=== PATIENT | female | born 1990 | race Caucasian/White ===

== ENCOUNTER 2024-07-15 09:31 | Outpatient (AMB) | payer BC, SELFPAY ==
--- NOTE | 2024-07-15 09:53 | MHC.PC.OV ---
Vital Signs 07/15/24 10:03 Height 5 ft 2.99 in Weight 138 lb BMI 24.5 BP 92/68 Blood Pressure Location Lt brachial Position Sitting Respiration 12 Pulse 70 Pulse Source Pulse Oximeter Pulse Oximetry (%) 100 Oxygen Delivery Method Room Air Intake Visit Reasons: hip pain Marketing Compliance Manager Required: No Allergies No Known Allergies Allergy (Verified 07/15/24 09:59) Medication List - Last Reconciled 07/15/24 by Katiana Mendoza PA-C No Known Home Meds Tobacco use date assessed: 07/15/24 Dental Screening Dental Screen Date: 07/15/24 Did you have a dental visit in the last 12 months?: Yes Did you have a dental problem in the last 6 months where you did not have access to dental care?: No Was dental information given to patient?: Patient has dentist HPI hip pain HPI Details Patient is a 33-year-old female who presents today to reestablish care and with concerns regarding left hip pain. CV: History of a septal defect and had an echo a couple years ago at [facility] which she states was overall normal/reassuring. Unfortunately, we do not have the records yet from [facility] but we will be requesting these today. Musculoskeletal: She states that her left hip pain started around Nikki time. She notices it mostly on the lateral aspect of her left hip and she states that there is a lot of point tenderness with this. It was worse if she sits and then goes to stand up. She states sitting in the car or sitting at a desk can cause it to become very painful when she goes to initially stand. Lying on that side at night is also very uncomfortable. She does not stretch but does exercise regularly. There was no specific trauma or injury to the hip. No radiation down the leg or in the back. No radiation into the groin. She states sometimes putting weight on the hip also elicits discomfort. She walks a mi or 2 a day and does not have any discomfort when she starts moving. She says it is always the 1st initial steps that are painful. General: She has been feeling a little tired recently but attributes this to life but is interested in her labs as it has been quite sometime since she has had any blood work. BODY MECHANIC: [facility] hx: lung ca maternal grandmother [facility] Social History Housing: House Patient Tobacco Use Status: Never used Tobacco e-Cigarette/Vaping Use: Never Used Second Hand Smoke Exposure: No service: No Current occupational status: employed Current occupation: academic affairs assistant Current occupational exposures/hazards: No Cognitive needs: No Hearing needs: No Vision needs: No Questionnaire PHQ-9 Over the last 2 weeks, how often have you been bothered by any of the following problems? 1. Little interest or pleasure in doing things: not at all 2. Feeling down, depressed, or hopeless: not at all 3. Trouble falling or staying asleep, or sleeping too much: several days 4. Feeling tired or having little energy: not at all 5. Poor appetite or overeating: not at all 6. Feeling bad about yourself - or that you are a failure or have let yourself or your family down: not at all 7. Trouble concentrating on things, such as reading the newspaper or watching television: not at all 8. Moving or speaking so slowly that other people could have noticed. Or the opposite - being so fidgety or restless that you have been moving around a lot more than usual: not at all 9. Thoughts that you would be better off or of hurting yourself in some way: not at all Total score: 1 Depression Screening Interpretation: Negative Depression Screening Done: Yes 22063 - PHQ-9 Billing: Yes Source: Developed by Drs. Nolan Cardozo, Saida Ham, Smith Corona and colleagues, with an educational steve from [employer]. Thrive Questionnaire I am a: Patient What is your living situation today?: I have a steady place to live Within the past 12 months, did the food you bought not last and you didn't have the money to get more?: Never true Within the past 12 months, did you worry whether your food would run out before you got money to buy more?: Never true Do you have trouble paying for medicines?: No Do you have trouble getting transportation to medical appointments?: No Do you have trouble paying your heating and electricity bill?: No Do you have trouble taking care of your child, family member or friend?: No Do you have trouble with day-to-day activities such as bathing, preparing meals, shopping, managing finances, etc.?: No Are you currently unemployed and looking for a job?: No Are you interested in more education?: No Please select the resources that you would like help with: None Currently or been in a relationship where the following occur: No concerns reported THRIVE Score: 0 AUDIT C Alcohol Use Questionnaire (AUDIT-C) 1. How often do you have a drink containing alcohol?: 2-4 times a month 2. How many drinks containing alcohol do you have on a typical day when you are drinking?: 1 or 2 3. How often do you have six or more drinks on one occasion?: Never Total Score: 2 KARLOS-7 AMB Questionnaire KARLOS-7 Feeling nervous, anxious, or on edge: 0 = Not at all Not being able to stop or control worryin = Not at all Worrying too much about different things: 0 = Not at all Trouble relaxin = Not at all Being so restless that it is hard to sit still: 0 = Not at all Becoming easily annoyed or irritable: 0 = Not at all Feeling afraid as if something awful might happen: 0 = Not at all Total KARLOS-7 score (0-4 normal; 5-9 mild; 10-14 moderate; 15-21 severe): 0 Source: Developed by Drs. Nolan Cardozo, Saida Ham, Smith Corona and colleagues, with an educational steve from [employer]. KARLOS-7 Assessment Billing KARLOS-7 Assessment Tool: KARLOS-7 Assessment 41831 Physical exam (Primary Care) Vital Signs: Last Vital Signs Pulse 70 07/15/24 10:03 Resp 12 07/15/24 10:03 BP 92/68 07/15/24 10:03 Pulse Ox 100 07/15/24 10:03 Oxygen Delivery Method Room Air 07/15/24 10:03 BMI result Body Mass Index 24.5 Tobacco/Smoking Status: Tobacco use Status Tobacco use date assessed 07/15/24 07/15/24 10:02 Patient Tobacco Use Status Never used Tobacco 07/15/24 10:02 e-Cigarette/Vaping Use Never Used 07/15/24 10:02 PHQ-9: PHQ-9 Score PHQ-9: Total score 1 07/15/24 09:53 Depression Screening Interpretation: Negative Currently or been in a relationship where the following occur: No concerns reported Const Orientation/consciousness: patient oriented x3 HENMT Ears: hearing grossly normal bilaterally Neck Thyroid: Thyroid normal Lymphatic: no lymphadenopathy noted Resp Auscultation: clear to auscultation bilaterally Cardio Rate: regular rate Rhythm: regular rhythm Heart sounds: S1 normal heart sound present and S2 normal heart sound present GI Inspection: Yes normal to inspection Palpation (GI): Soft to palpation and Other GI palpation findings present (nontender, no cva tenderness) Auscultation: normoactive bowel sounds Rectal Exam - Female: deferred General: Yes no CVA tenderness Back/Spine/Pelvis Back: no CVA tenderness Cervical Spine: cervical ROM normal Thoracic/Lumbar Spine: thoraco-lumbar ROM normal and straight leg raise negative bilaterally Skin General skin exam: no rashes or lesions noted Neuro General: patient oriented x3, gait normal and no focal motor deficits Extrem Other: There is tenderness to palpation over the left greater trochanteric region. Full range of motion of the hip however internal rotation elicits discomfort. No discomfort with flexion or extension. No palpable deformity. Coding Level of Care Code Est Pt Level 4 (77622) Complex EM visit Add On G2211 Diagnoses Left hip pain M25.552 Fatigue R53.83 Additional Codes PHQ-9 - 43160 - PHQ-9 Billing: Yes ([id number]) KARLOS-7 Assessment Billing - KARLOS-7 Assessment Tool: KARLOS-7 Assessment 26603 ([id number]) Assessment & Plan Assessment & Plan (1) Left hip pain: Code(s): M25.552 - Pain in left hip Category: Medical Plan: X-ray ordered. Advised to try resting and hip bursitis exercises. Labs ordered. We will follow up pending test results (2) Fatigue: Code(s): R53.83 - Other fatigue Category: Medical Plan: Labs ordered. We will follow up pending test results. Advised patient to follow up for a physical exam. Orders: Orders Comprehensive Met. Panel Today M25.552 - Pain in left hip, R53.83 - Other fatigue, Z00.00 - Encounter for general adult medical examination without abnormal findings TSH reflex Free T4 Today M25.552 - Pain in left hip, R53.83 - Other fatigue, Z00.00 - Encounter for general adult medical examination without abnormal findings Lyme IgG/IgM w/reflex to WB Today M25.552 - Pain in left hip, R53.83 - Other fatigue, Z00.00 - Encounter for general adult medical examination without abnormal findings Vitamin B12 and Folate Today M25.552 - Pain in left hip, R53.83 - Other fatigue, Z00.00 - Encounter for general adult medical examination without abnormal findings Complete Blood Count Auto Diff Today M25.552 - Pain in left hip, R53.83 - Other fatigue, Z00.00 - Encounter for general adult medical examination without abnormal findings UA CC w/rflx Micro + Cult Today M25.552 - Pain in left hip, R53.83 - Other fatigue, Z00.00 - Encounter for general adult medical examination without abnormal findings, Z13.220 - Encounter for screening for lipoid disorders Erythrocyte Sedimentation Rate Today M25.552 - Pain in left hip, R53.83 - Other fatigue, Z00.00 - Encounter for general adult medical examination without abnormal findings Magnesium Today M25.552 - Pain in left hip, R53.83 - Other fatigue, Z00.00 - Encounter for general adult medical examination without abnormal findings C Reactive Protein Today M25.552 - Pain in left hip, R53.83 - Other fatigue, Z00.00 - Encounter for general adult medical examination without abnormal findings XR hip LT min 2V Today M25.552 - Pain in left hip
[2024-07-15 10:03] VITALS: BP 92/68; PULSE 70; RESP 12; O2SAT 100; BMI 24.5
--- OUTSIDE RECORDS SUMMARY | 2024-07-15 11:26 | XMS_ITS | Clinical Summary ---
Author Organization [facility] Address [address] [place] [address] Care Team Providers Care Material Assembler Name Role Phone Antoinette Cruz MD Primary Care Provider Surgical History Surgery Date Site/Laterality Comments TONSILLECTOMY PROCEDURE: HISTORICAL TONSILLECTOMY Medical History Medical History Date Comments Patent foramen ovale 01/16/2017 DX:Patent f oramen ovale; COMMENT: Echo 07/09/13 Family History Medical History Relation Name Comments Lung cancer Maternal Grandmother smoker Cervical cancer Mother or precancer ? had cervix removed Lung cancer Paternal Grandfather smoker Diabetes Paternal Grandmother Relation Name Status Comments Daughter Mila Alive Maternal Grandmother Mother Alive Paternal Grandfather Paternal Grandmother Alive Son Terrance Alive Social History Tobacco Use Types Packs/Day Years Used Date Smoking Tobacco: Never Smokeless Tobacco: Never Alcohol Use Standard Drinks/Week Comments No 0 (1 standard drink = 0.6 oz pur e alcohol) Comments Unknown Sex and Gender Information Value Date Recorded Sex Assigned at Not on file Legal Sex Female 3:55 PM EST Gender Identity Not on file Sexual Orientation Not on file Obstetrics History Plan of Treatment Health Maintenance Due Date Last Done Comments Hepatitis B Vaccines (4 of 4 - 4-dose series) 08/22/2000 07/02/2000, 06/27/2000, 02/25/2000 Cervical Cancer Screening: Pap Smear 09/02/2021 09/02/2018 Depression Screening 03/20/2022 HIV Screening 03/20/2022 Hepatitis C Screening 03/20/2022 Social Influencers of Health Screening 03/20/2022 COVID-19 Vaccine ( season) 2023 Influenza Vaccine (#1) 2023 12/28/2018 DTaP,Tdap,and Td Vaccines (9 - Td or Tdap) 12/11/2028 12/11/2018, 11/13/2013, 05/19/2008, Additional history exists HIB Vaccines Aged Out 02/19/1990 No longer eligi ble based on patient's age to complete this topic MMR Vaccines Completed 02/25/2000, 02/19/1990 Meningococcal ACWY Vaccine Aged Out 05/19/2008 N o longer eligible based on patient's age to complete this topic IPV Vaccines Completed 11/13/2013, 04/1990, 02/19/1990, Additional history exists HPV Vaccines Aged Out No longer eligi ble based on patient's age to complete this topic Hepatitis A Vaccines Aged Out No long er eligible based on patient's age to complete this topic Meningococcal B Vacine Aged Out No lo nger eligible based on patient's age to complete this topic Pneumococcal Vaccine: Pediatrics (0 to 5 Years) and At-Risk Patients (6 to 64 Years) Aged Out No longer eligible based on patient's age to complete this topic RSV Immunization Patients Under 20 months Aged Out No longer eligible based on patient's age to complete this topic Varicella Vaccines Aged Out No longer eligible based on patient's age to complete this topic Procedures Procedure Name Priority Date/Time Associated Diagnosis Comments PAP SMEAR Routine 09/02/2018 from Last 3 Months or Most Recently Relevant to Health Maintenance Results * Pap smear (09/02/2018) 09/02/2018 Narrative HISTORICAL TESTING LAB RESULTING AGENCY - 09/04/2018 4:50 PM EDT [id number] THINPREP PAP, IMAGED: NEGATIVE FOR SQUAMOUS INTRAEPITHELIAL LESION AND MALIGNANCY . SANTY SAXENA(ASCP) (CASE ELECTRONICALLY SIGNED 09 04 2018) RESULT OF APTIMA HIGH RISK HPV ASSAY: HIGH RISK HPV: ??NEGATIVE (SEROTYPES 16,18,31,33,35,39,45,51,52,56,58,59,66,68) COMPLETED ON 2018-09-03 ADEQUACY: SATISFACTORY ENDOCERVICAL/TRANSFORMATION ZONE COMPONENT PRESENT. SOURCE: THINPREP PAP HPV ANY DX: ??REFLEX 16 AND 18, CERVICAL, IMAGED CLINICAL INFORMATION: HPV ANY DIAGNOSIS. , LMP 06/09/18, Z12.4 us [facility] LAB CYTOLOGY ORDERABLES Final Result HISTORICAL TESTING LAB RESULTING AGENCY from Last 3 Months or Most Recently Relevant to Health Maintenance Care Teams Material Assembler Relationship Specialty Start Date End Date Antoinette Cruz MD PCP - General Internal Medicine 12/02/16
== END 2024-07-15 10:28 | disposition home or self-care (01) ==
PROVIDERS: PCP Internal Medicine; Visit Provider Physician Assistant
DX: M25.552 Pain in left hip (principal); R53.83 Other fatigue

== ENCOUNTER → 2024-07-15 09:31 | Outpatient (BNVA) | payer BC, SELFPAY | PROVIDERS: PCP Internal Medicine; Visit Provider Physician Assistant | CPT/HCPCS: 96127 ==

== ENCOUNTER 2024-07-15 10:55 | Outpatient (REF) | payer BC, SELFPAY ==
[2024-07-15 14:09] LABS: MANUAL DIFF FLAG NO
[2024-07-15 14:16] LABS: Basophils Percent Auto 0.2 % (0-2); Eosinophils Absolute Auto 0.1 X10*3/uL (0.0-0.4); Eosinophils Percent Auto 1.5 % (0-4); Hematocrit 40.9 % (37.0-47.0); Hemoglobin 13.4 g/dl (12.0-16.0); Imm Gran Abs Auto 0.03 X10*3/uL (0.00-0.03); Imm Gran Pct Auto 0.3 % (0.0-0.4); Lymphocytes Percent Auto 21.7 % (20-40); Mean Corpuscular HGB Conc 32.8 g/dl (31.0-35.0); Mean Corpuscular Hemoglobin 29.6 pg (27.0-33.0); Mean Corpuscular Volume 90.3 fL (80.0-98.0); Mean Platelet Volume 10.6 fL (9.4-12.3); Monocytes Absolute Auto 0.5 X10*3/uL (0.1-1.2); Monocytes Percent Auto 5.8 % (2-11); Neutrophils Absolute Auto 6.4 x10*3/uL (2.0-8.3); Neutrophils Percent Auto 70.5 % (45-73); Platelet Count 234 X10*3/uL (160-400); Red Blood Count 4.53 X10*6/uL (4.20-5.50); Red Cell Distribution Width 12.7 % (11.0-16.0); White Blood Count 9.1 X10*3/uL (4.8-10.8)
[2024-07-15 14:30] LABS: Appearance Urine Clear; Color Urine Yellow; Glucose Urine UA Negative (Negative); Leukocyte Esterase Urine Negative (Negative); Nitrite Urine Negative (Negative); PH 8.5 (5.0-9.0); Urine Blood Negative (Negative); Urine Ketones Negative (Negative); Urine Protein Negative (Neg-Trace)
[2024-07-15 14:42] LABS: Alanine Aminotransferase 18 U/L (0-31); Albumin Level 4.4 g/dL (3.5-5.0); Alkaline Phosphatase 47 U/L (39-117); Anion Gap 11 (12-20); Aspartate Amino Transferase 17 U/L (5-31); Bilirubin Total 0.5 mg/dL (0.0-1.0); Blood Urea Nitrogen 21 mg/dL (9-16); Calcium 9.4 mg/dL (8.4-10.2); Carbon Dioxide 26 mmol/L (22-29); Chloride 108 mmol/L (96-108); Estimated Glomerular Filt Rate > 60; Glucose Random 85 mg/dL (60-115); Magnesium 2.1 mg/dL (1.6-2.6); Potassium 3.9 mmol/L (3.3-5.1); Sodium 141 mmol/L (135-145); Total Protein 7.6 g/dL (6.5-8.0)
[2024-07-15 14:44] LABS: TSH reflex Free T4 0.63 uIU/mL (0.32-4.0)
[2024-07-15 14:57] LABS: Erythrocyte Sedimentation Rate 7 MM/HR (0-20)
[2024-07-15 14:59] LABS: Folate 10.5 ng/mL (> or = 4.0); Vitamin B12 898 pg/mL (200-900)
[2024-07-16 18:34] LABS: Lyme Abs Screen <0.90 index
== END 2024-07-15 10:56 | disposition home or self-care (01) ==
LOC: HO.WFDLDS 10:55
PROVIDERS: Visit Provider Physician Assistant
DX: Z00.00 Encounter for general adult medical examination without abnormal findings (principal); R53.83 Other fatigue; Z13.220 Encounter for screening for lipoid disorders; M25.552 Pain in left hip
CPT/HCPCS: 36415; 80053; 81003; 82607; 82746; 83735; 84443; 85025; 85652; 86140; 86617; 86618